=== PATIENT | female | born 1960 | race Caucasian/White ===

== ENCOUNTER 2025-07-14 08:45 | Emergency (ER) | payer OTHER ==
[~2025-07-14] VITALS: Ht 165.1 cm; Wt 59.0 kg
[2025-07-14] MEDS ORDERED: AMLODIPINE BES2.5 MG PO (09:14)
[2025-07-14] MEDS ORDERED: ALLOPURINOL300 MG PO (09:15)
[2025-07-14] MEDS ORDERED: MONTELUKAST SOD10 MG PO (09:15)
[2025-07-14] MEDS ORDERED: OXYCODONE HCL10 M1 PO (09:15)
[2025-07-14] MEDS ORDERED: ATORVASTATIN CA10 M1 PO (09:16)
[2025-07-14] MEDS ORDERED: Carafate1 GM PO (09:16)
[2025-07-14] MEDS ORDERED: BUPROPION HYDR150 M3 PO (09:16)
[2025-07-14] MEDS ORDERED: OMEPRAZOLE40 MG PO (09:16)
[2025-07-14] MEDS ORDERED: OZEMPIC0.25 MG/03 SQ (09:17)
[2025-07-14] MEDS ORDERED: Ondansetron Hydrochloride 4 MG/2 ML VIAL IV ONE ×2 (09:30→10:55)
[2025-07-14] MEDS ORDERED: SODIUM CHLORIDE 0.9% 1,000 ML IV ONE ×2 (09:30→10:17)
[2025-07-14] MEDS ORDERED: IOHEXOL 300 MG/ML 100 ML VIAL IV ONE (09:35)
[2025-07-14 09:58] LABS: MEAN CELL VOLUME 76.1 fl (81.0-99.0); MEAN CORPUSCULAR HGB 21.6 pg (27.0-31.0); MEAN PLATELET VOLUME 9.6 fl (9.6-12.3); NUCLEATED RED BLOOD CELL 0.0 % (0.0-0.0); NUCLEATED RED BLOOD CELL 0.0 10*3/uL (0.0-0.0); PLATELET COUNT AUTOMATED 396 10*3/uL (130-400); RED CELL DISTRI WIDTH 20.8 % (0-14.5)
[2025-07-14 10:08] LABS: ACT PARTIAL THROMBO TIME 33.0 SECONDS (20.0-32.1)
[2025-07-14 10:13] LABS: MANUAL DIFF REFLEX YES
[2025-07-14 10:17] LABS: BASOPHILS 1 % (0-1); PLATELET SUFFICIENCY NORMAL (NORMAL)
[2025-07-14 10:19] LABS: BUN 19 mg/dl (9-23)
[2025-07-14 10:29] LABS: SGPT/ALT < 7 U/L (5-49)
[2025-07-14 12:25] VITALS: BP 114/63
[2025-07-14 12:40] VITALS: BP 122/48
[2025-07-14 12:55] VITALS: BP 116/62; BP 120/71
[2025-07-14 13:10] VITALS: BP 125/55
[2025-07-14 13:25] VITALS: BP 109/48
[2025-07-14] MEDS ORDERED: Metoclopramide Hydrochloride 10 MG/2 ML VIAL IV ONE (13:55)
[2025-07-14] MEDS ORDERED: diphenhydrAMINE hydrochloride 50 MG/ML VIAL IV ONE (13:55)
[2025-07-14 14:25] VITALS: BP 137/72
== END 2025-07-14 15:03 | disposition short-term general hospital (02) ==
LOC: ED 08:45
PROVIDERS: Student in an Organized Health Care Education/Training Program
DX: K92.2 Gastrointestinal hemorrhage, unspecified (principal); D64.9 Anemia, unspecified; K92.0 Hematemesis; C79.9 Secondary malignant neoplasm of unspecified site; Z88.8 Allergy status to other drugs, medicaments and biological substances